=== PATIENT | female | born 1990 | race African-American/Black ===

== ENCOUNTER 2016-12-28 13:51 | Emergency (ER) | payer SELFPAY ==
[~2016-12-28] VITALS: Ht 172.7 cm; Wt 59.1 kg
[~2016-12-28 13:51] MED LIST: AMOXICILLIN500 MG PO; BIRTH CONTROL PILLS; CIPRO500 MG OR; CIPROFLOXACN500 MG PO; DARVOCET-N 100100 MG OR; DEPO; DEPO-PROVER150 MG/M1 IM; DEPO-PROVER150 MG/ML IM; FLONASE NASAL50 MCG; INVEGA SUS1 IM; LORTAB5 PO; MIRACLEMM PO; PRENATA3 OR; PYRIDIUM200 MG OR; PYRIDIUM200 MG PO; ULTRAM50 MG OR; ZOFRAN ODT4 MG OR; ZOFRAN4 MG/TAB PO; [UNRECOGNIZED DRUG - OTHER]
[2016-12-28] MEDS ORDERED: AMOXICILLIN500 MG PO (15:01)
[2016-12-28 15:07] VITALS: BP 107/63
== END 2016-12-28 15:08 | disposition home or self-care (01) | DRG 159 ==
LOC: ED 13:51
DX: K08.89 Other specified disorders of teeth and supporting structures (principal)

== ENCOUNTER 2017-03-29 11:51 | Emergency (ER) | payer SELFPAY ==
[~2017-03-29] VITALS: Ht 172.7 cm; Wt 50.0 kg
[2017-03-29 12:50] VITALS: BP 121/66
== END 2017-03-29 12:50 | disposition home or self-care (01) | DRG 951 ==
LOC: ED 11:51
DX: Z03.89 Encounter for observation for other suspected diseases and conditions ruled out (principal)

== ENCOUNTER 2021-05-18 16:19 | Emergency (ER) | payer MEDICARE, MEDICAID ==
[2021-05-18 17:54] VITALS: BP 108/65
== END 2021-05-18 17:58 | disposition home or self-care (01) ==
LOC: ED 16:19
DX: R19.7 Diarrhea, unspecified (principal); Z20.822 Contact with and (suspected) exposure to COVID-19

== ENCOUNTER 2022-04-28 10:50 | Emergency (ER) | payer MEDICARE, MEDICAID ==
[~2022-04-28] VITALS: Ht 172.7 cm; Wt 87.0 kg
[2022-04-28] MEDS ORDERED: INVEGA1.5 MG PO (12:07)
[2022-04-28] MEDS ORDERED: PAXLOVID PO (13:11)
[2022-04-28] MEDS ORDERED: TAM75CAP PO (13:11)
[2022-04-28 13:13] VITALS: BP 117/70
== END 2022-04-28 13:32 | disposition home or self-care (01) ==
LOC: ED 10:50
DX: U07.1 COVID-19 (principal); J10.1 Influenza due to other identified influenza virus with other respiratory manifestations

== ENCOUNTER 2022-07-18 06:03 | Emergency (ER) | payer MEDICARE, MEDICAID ==
[~2022-07-18] VITALS: Ht 172.7 cm; Wt 85.0 kg
[~2022-07-18 06:03] MED LIST changes: +INVEGA1.5 MG PO; +PAXLOVID PO; +TAM75CAP PO
[2022-07-18 07:28] LABS: HEMATOCRIT 34.9 % (37.0-47.0); HEMOGLOBIN 11.4 g/dl (12.0-16.0); IMMATURE GRANULOCYTES 0.1 % (0.0-5.0); MEAN CELL VOLUME 92.1 fL CALC (80.0-100.0); MEAN CORPUSCULAR HGB 30.1 pG CALC (26.0-32.0); MEAN CORPUSCULAR HGB CONC 32.7 g/dL CAL (32.0-36.0); NEUT# 5.85 thou/uL (2.00-7.15); RED BLOOD COUNT 3.79 mill/uL (4.20-5.60); RED CELL DISTRI WIDTH 12.8 % (11.5-15.5)
[2022-07-18 09:02] LABS: ALBUMIN 4.3 g/dL (3.2-5.0); ALKALINE PHOSPHATASE 77 u/l (38-126); ANION GAP 16 (6-22 (CALC)); BUN 8 mg/dL (7-17); BUN/CREATININE RATIO 8 (12-20 (CALC)); CARBON DIOXIDE 23 mmol/l (22-30); CHLORIDE 105 mmol/l (95-108); GFR FOR AFR.AMER. > 60 ML/MIN (>=60 (CALC)); GFR OTHER RACES > 60 ML/MIN (>=60 (CALC)); POTASSIUM 3.9 mmol/l (3.5-5.1); SGOT/AST 33 u/l (14-36); SODIUM 140 mmol/l (137-146); TOTAL PROTEIN 7.5 g/dL (6.3-8.2)
[2022-07-18 09:04] LABS: BILIRUBIN, TOTAL 0.2 mg/dL (0.0-1.4)
[2022-07-18] MEDS ORDERED: NEXIUM40 M1 PO (09:24)
[2022-07-18] MEDS ORDERED: ZOFRAN4 MG/TAB PO (09:24)
[2022-07-18 10:52] VITALS: BP 120/80
== END 2022-07-18 10:52 | disposition home or self-care (01) ==
LOC: ED 06:03
PROVIDERS: Emergency Medicine
DX: A08.4 Viral intestinal infection, unspecified (principal)

== ENCOUNTER 2022-11-05 20:48 | Emergency (ER) | payer MEDICARE, MEDICAID ==
[~2022-11-05] VITALS: Ht 170.2 cm; Wt 84.0 kg
[~2022-11-05 20:48] MED LIST changes: +NEXIUM40 M1 PO
[2022-11-06] MEDS ORDERED: MOTRIN800 MG PO (00:19)
== END 2022-11-06 00:34 | disposition home or self-care (01) ==
LOC: ED 20:48
DX: J10.1 Influenza due to other identified influenza virus with other respiratory manifestations (principal)

== ENCOUNTER 2023-03-27 22:03 | Emergency (ER) | payer MEDICARE ==
[~2023-03-27] VITALS: Ht 170.2 cm; Wt 79.5 kg
[~2023-03-27 22:03] MED LIST changes: +MOTRIN800 MG PO
[2023-03-27 23:11] VITALS: BP 128/71
== END 2023-03-27 23:18 | disposition home or self-care (01) ==
LOC: ED 22:03
DX: S30.810A Abrasion of lower back and pelvis, initial encounter (principal); X58.XXXA Exposure to other specified factors, initial encounter; Y93.89 Activity, other specified

== ENCOUNTER 2023-06-12 05:09 | Emergency (ER) | payer MEDICARE, MEDICAID ==
[2023-06-12] VITALS (10 sets, daily range): BP systolic 91–105; BP diastolic 51–73
[~2023-06-12] VITALS: Ht 170.2 cm; Wt 99.0 kg
[2023-06-12 05:50] LABS: URINE BLOOD DIPSTICK Moderate (NEGATIVE); URINE GLUCOSE - DIPSTICK Negative (NEGATIVE); URINE KETONE Negative (NEGATIVE); URINE NITRITE - DIPSTICK Negative (Negative); URINE PROTEIN - DIPSTICK 100 mg/dL (NEG-TRACE); URINE SPECIFIC GRAVITY >=1.030
[2023-06-12 05:54] LABS: URINE COLOR Yellow; URINE LEUK ESTERASE Small (NEGATIVE)
[2023-06-12 05:55] LABS: BASO% 0.1 % (0-3); EOS% 0.2 % (0-8); HEMATOCRIT 33.7 % (37.0-47.0); HEMOGLOBIN 10.9 g/dl (12.0-16.0); LYMPH% 7.9 % (15-41); MEAN CELL VOLUME 92.3 fL CALC (80.0-100.0); MEAN CORPUSCULAR HGB 29.9 pG CALC (26.0-32.0); MEAN CORPUSCULAR HGB CONC 32.3 g/dL CAL (32.0-36.0); MONO% 5.8 % (2-13); NEUT# 14.16 thou/uL (2.00-7.15); RED BLOOD COUNT 3.65 mill/uL (4.20-5.60)
[2023-06-12 05:58] LABS: URINE BACTERIA MANY hpf; URINE SQUAMOUS EPITHELIAL CELL FEW EPI/hpf (0-FEW); URINE WBC 20-50 WBC/hpf (0-5)
[2023-06-12 06:20] LABS: ALBUMIN 3.6 g/dL (3.2-5.0); CREATININE 1.3 mg/dL (0.5-1.0); POTASSIUM 3.5 mmol/l (3.5-5.1); TOTAL PROTEIN 7.3 g/dL (6.3-8.2)
[2023-06-12 06:24] LABS: BILIRUBIN, TOTAL 0.8 mg/dL (0.02-1.3)
[2023-06-12] MEDS ORDERED: ONDANSETRON4 MG PO (06:49)
[2023-06-12] MEDS ORDERED: BACTRIM DS1 TAB PO (06:49)
== END 2023-06-12 07:34 | disposition home or self-care (01) ==
LOC: ED 05:09
PROVIDERS: Family Medicine
DX: K52.9 Noninfective gastroenteritis and colitis, unspecified (principal); N39.0 Urinary tract infection, site not specified; B96.89 Other specified bacterial agents as the cause of diseases classified elsewhere; Z20.822 Contact with and (suspected) exposure to COVID-19

== ENCOUNTER 2023-06-14 23:51 | Emergency (ER) | payer MEDICARE, MEDICAID ==
[~2023-06-14] VITALS: Ht 170.2 cm; Wt 83.0 kg
[~2023-06-14 23:51] MED LIST changes: +BACTRIM DS1 TAB PO; +ONDANSETRON4 MG PO
[2023-06-15 00:21] VITALS: BP 113/67
[2023-06-15] MEDS ORDERED: BENZTROPINE1 MG PO (00:50)
[2023-06-15 00:54] LABS: URINE BILIRUBIN - DIPSTICK Negative (NEGATIVE); URINE BLOOD DIPSTICK Trace-lysed (NEGATIVE); URINE KETONE 15 mg/dL (NEGATIVE); URINE NITRITE - DIPSTICK Negative (Negative); URINE PH 6.5 (4.5-8.0); URINE PROTEIN - DIPSTICK Negative (NEG-TRACE); URINE SPECIFIC GRAVITY <=1.005
[2023-06-15 01:02] LABS: URINE COLOR Yellow; URINE LEUK ESTERASE Small (NEGATIVE)
[2023-06-15 01:03] LABS: BASO% 0.3 % (0-3); EOS% 0.2 % (0-8); HEMATOCRIT 31.5 % (37.0-47.0); HEMOGLOBIN 10.2 g/dl (12.0-16.0); IMMATURE GRANULOCYTES 1.2 % (0.0-5.0); LYMPH% 17.9 % (15-41); MEAN CELL VOLUME 90.3 fL CALC (80.0-100.0); MEAN CORPUSCULAR HGB 29.2 pG CALC (26.0-32.0); MEAN CORPUSCULAR HGB CONC 32.4 g/dL CAL (32.0-36.0); MONO% 8.9 % (2-13); NEUT# 7.55 thou/uL (2.00-7.15); NEUT% 71.5 % (42-76); RED BLOOD COUNT 3.49 mill/uL (4.20-5.60); RED CELL DISTRI WIDTH 13.1 % (11.5-15.5)
[2023-06-15 01:07] LABS: URINE GLUCOSE - DIPSTICK Negative (NEGATIVE)
[2023-06-15 01:08] LABS: URINE BACTERIA MODERATE hpf; URINE EPITHELIAL CELLS MANY EPI/hpf (0-FEW)
[2023-06-15 01:23] LABS: ALBUMIN 3.4 g/dL (3.2-5.0); BILIRUBIN, TOTAL 0.6 mg/dL (0.02-1.3); CREATININE 1.4 mg/dL (0.5-1.0); POTASSIUM 3.4 mmol/l (3.5-5.1)
[2023-06-15] MEDS ORDERED: CEPHALEXIN500 MG PO (01:42)
[2023-06-15 02:10] VITALS: BP 110/72
--- NOTE | 2023-06-15 12:27 | NUR ---
Discussed urine culture results from 06/[address] Miguel. Received verbal order to cancel Keflex rx and call in new rx for Bactrim DS 1 tab po bid x 4 additional days.
== END 2023-06-15 02:10 | disposition home or self-care (01) ==
LOC: ED 23:51
PROVIDERS: Emergency Medicine
DX: N39.0 Urinary tract infection, site not specified (principal); F20.9 Schizophrenia, unspecified; Z20.822 Contact with and (suspected) exposure to COVID-19

== ENCOUNTER 2023-06-19 08:25 | Emergency (ER) | payer MEDICARE, MEDICAID ==
[~2023-06-19] VITALS: Ht 170.2 cm; Wt 83.9 kg
[~2023-06-19 08:25] MED LIST changes: +BENZTROPINE1 MG PO; +CEPHALEXIN500 MG PO
[2023-06-19 10:29] LABS: ALKALINE PHOSPHATASE 127 u/l (38-126); ANION GAP 16 (6-22 (CALC)); BILIRUBIN, TOTAL 0.5 mg/dL (0.02-1.3); BUN 7 mg/dL (7-17); BUN/CREATININE RATIO 6 (12-20 (CALC)); CARBON DIOXIDE 24 mmol/l (22-30); CHLORIDE 103 mmol/l (95-108); CREATININE 1.3 mg/dL (0.5-1.0); GFR FOR AFR.AMER. 57 ML/MIN (>=60 (CALC)); GFR OTHER RACES 47 ML/MIN (>=60 (CALC)); POTASSIUM 3.2 mmol/l (3.5-5.1); SODIUM 139 mmol/l (137-146)
[2023-06-19 10:31] LABS: BASO% 0.7 % (0-3); EOS% 2.3 % (0-8); HEMATOCRIT 37.1 % (37.0-47.0); LYMPH% 44.4 % (15-41); MEAN CELL VOLUME 91.6 fL CALC (80.0-100.0); MEAN CORPUSCULAR HGB 29.6 pG CALC (26.0-32.0); MEAN CORPUSCULAR HGB CONC 32.3 g/dL CAL (32.0-36.0); MONO% 7.7 % (2-13); NEUT# 2.64 thou/uL (2.00-7.15); NEUT% 43.9 % (42-76); RED BLOOD COUNT 4.05 mill/uL (4.20-5.60); RED CELL DISTRI WIDTH 13.3 % (11.5-15.5)
[2023-06-19 10:37] LABS: D-DIMER 1.69 mg/L (0.19-0.60)
[2023-06-19 10:41] LABS: ACT PARTIAL THROMBO TIME 29.5 SECONDS (20.0-32.5); INTERNATIONAL NORMALIZED RATIO 1.1 RATIO (0.7-1.3); PROTHROMBIN TIME 10.2 SECONDS (9.0-12.5)
[2023-06-19 10:46] LABS: ALBUMIN 4.2 g/dL (3.2-5.0); SGOT/AST 61 u/l (14-36); TOTAL PROTEIN 8.7 g/dL (6.3-8.2)
[2023-06-19] MEDS ORDERED: IBUPROFEN600 MG PO (15:05)
[2023-06-19 15:27] VITALS: BP 114/72
== END 2023-06-19 15:24 | disposition home or self-care (01) ==
LOC: ED 08:25
PROVIDERS: Family Medicine
DX: M94.0 Chondrocostal junction syndrome [Tietze] (principal)
CPT/HCPCS: Q9967

== ENCOUNTER 2023-10-20 08:23 | Emergency (ER) | payer MEDICARE, MEDICAID ==
[~2023-10-20] VITALS: Ht 170.2 cm; Wt 79.3 kg
[~2023-10-20 08:23] MED LIST changes: +IBUPROFEN600 MG PO
[2023-10-20 08:45] VITALS: BP 102/78
[2023-10-20 09:00] VITALS: BP 100/62
[2023-10-20 09:15] VITALS: BP 108/63
[2023-10-20] MEDS ORDERED: ALL DAY10 MG PO (09:16)
[2023-10-20] MEDS ORDERED: PREDNISONE50 MG PO (09:16)
[2023-10-20 09:31] VITALS: BP 92/65
== END 2023-10-20 09:39 | disposition home or self-care (01) ==
LOC: ED 08:23
DX: L50.0 Allergic urticaria (principal)

== ENCOUNTER 2024-05-11 12:19 | Emergency (ER) | payer MEDICARE ==
[~2024-05-11] VITALS: Ht 170.2 cm; Wt 83.9 kg
[~2024-05-11 12:19] MED LIST changes: +ALL DAY10 MG PO; +PREDNISONE50 MG PO
[2024-05-11 12:43] VITALS: BP 112/69
== END 2024-05-11 12:50 | disposition left against medical advice (07) ==
LOC: ED 12:19
DX: F20.9 Schizophrenia, unspecified (principal); Z53.29 Procedure and treatment not carried out because of patient's decision for other reasons

== ENCOUNTER 2024-09-10 01:22 | Emergency (ER) | payer MEDICARE ==
[~2024-09-10] VITALS: Ht 170.2 cm; Wt 69.4 kg
[2024-09-10 01:56] LABS: URINE BILIRUBIN - DIPSTICK Negative (NEGATIVE); URINE BLOOD DIPSTICK Large (NEGATIVE); URINE GLUCOSE - DIPSTICK Negative (NEGATIVE); URINE KETONE Negative (NEGATIVE); URINE PROTEIN - DIPSTICK 30 mg/dL (NEG-TRACE); URINE UROBILINOGEN - DIPSTICK 0.2 E.U./dL (0.2)
[2024-09-10 01:59] LABS: URINE COLOR Yellow; URINE LEUK ESTERASE Small (NEGATIVE)
[2024-09-10 02:03] LABS: URINE NITRITE - DIPSTICK Negative (Negative); URINE RBC >100 RBC/hpf (0-5)
[2024-09-10 02:06] LABS: URINE EPITHELIAL CELLS MODERATE EPI/hpf (0-FEW)
[2024-09-10 02:07] LABS: URINE BACTERIA FEW hpf
[2024-09-10 03:05] VITALS: BP 115/71
== END 2024-09-10 03:05 | disposition home or self-care (01) ==
LOC: ED 01:22
PROVIDERS: Emergency Medicine
DX: N89.8 Other specified noninflammatory disorders of vagina (principal); F20.9 Schizophrenia, unspecified; Z59.00 Homelessness unspecified

== ENCOUNTER 2024-09-26 00:39 | Emergency (ER) | payer MEDICARE ==
[~2024-09-26] VITALS: Ht 170.2 cm; Wt 69.0 kg
[2024-09-26 01:00] VITALS: BP 132/71
== END 2024-09-26 01:41 | disposition left against medical advice (07) ==
LOC: ED 00:39
DX: R30.0 Dysuria (principal); F20.9 Schizophrenia, unspecified; Z53.29 Procedure and treatment not carried out because of patient's decision for other reasons

== ENCOUNTER 2024-10-05 21:25 | Emergency (ER) | payer MEDICARE ==
[~2024-10-05] VITALS: Ht 170.2 cm; Wt 69.0 kg
[2024-10-05] MEDS ORDERED: INVEGA SUS234 MG/1.5 IM (22:21)
[2024-10-05] MEDS ORDERED: ORTHO TRI-CY PO (22:23)
[2024-10-05 22:40] VITALS: BP 100/70
== END 2024-10-05 22:40 | disposition home or self-care (01) ==
LOC: ED 21:25
DX: Z30.011 Encounter for initial prescription of contraceptive pills (principal); F20.9 Schizophrenia, unspecified

== ENCOUNTER 2024-10-08 19:15 | Emergency (ER) | payer MEDICARE ==
[~2024-10-08] VITALS: Ht 170.2 cm; Wt 72.0 kg
[~2024-10-08 19:15] MED LIST changes: +INVEGA SUS234 MG/1.5 IM; +ORTHO TRI-CY PO
[2024-10-08 20:30] VITALS: BP 110/68
[2024-10-08 20:34] LABS: CREATININE 1.1 mg/dL (0.5-1.0); POTASSIUM 4.4 mmol/l (3.5-5.1)
[2024-10-08 20:45] VITALS: BP 100/69
[2024-10-08 21:01] VITALS: BP 100/69
== END 2024-10-08 21:03 | disposition home or self-care (01) ==
LOC: ED 19:15
PROVIDERS: Family Medicine
DX: Z11.4 Encounter for screening for human immunodeficiency virus [HIV] (principal)

== ENCOUNTER 2024-11-20 19:34 | Emergency (ER) | payer MEDICARE ==
[~2024-11-20] VITALS: Ht 170.2 cm; Wt 68.4 kg
[2024-11-20 22:43] VITALS: BP 99/58
[2024-11-20 23:00] VITALS: BP 82/62
[2024-11-20] MEDS ORDERED: FLUCONAZOLE 150 MG/TAB PO ONE (23:00)
[2024-11-20 23:31] VITALS: BP 105/68
[2024-11-20] MEDS ORDERED: metroNIDAZOLE 500 MG/TAB PO SCH (23:39)
[2024-11-21 00:25] VITALS: BP 105/68
== END 2024-11-21 00:25 | disposition home or self-care (01) ==
LOC: ED 19:34
DX: A59.01 Trichomonal vulvovaginitis (principal); Z59.02 Unsheltered homelessness

== ENCOUNTER 2024-11-26 17:33 | Emergency (ER) | payer MEDICARE ==
[~2024-11-26] VITALS: Ht 170.2 cm; Wt 77.0 kg
[2024-11-26 18:00] VITALS: BP 117/59
[2024-11-26 18:15] VITALS: BP 112/74
[2024-11-26 18:30] VITALS: BP 111/64
[2024-11-26 18:45] VITALS: BP 117/76
[2024-11-26] MEDS ORDERED: ZPAK PO (18:55)
[2024-11-26 19:00] VITALS: BP 122/72
[2024-11-26 19:08] VITALS: BP 122/72
== END 2024-11-26 19:10 | disposition home or self-care (01) ==
LOC: ED 17:33
DX: J06.9 Acute upper respiratory infection, unspecified (principal); Z20.822 Contact with and (suspected) exposure to COVID-19

== ENCOUNTER 2024-12-18 07:19 | Emergency (ER) | payer MEDICARE ==
[~2024-12-18] VITALS: Ht 170.2 cm; Wt 68.0 kg
[~2024-12-18 07:19] MED LIST changes: +ZPAK PO
[2024-12-18 07:28] VITALS: BP 101/64
[2024-12-18 07:30] VITALS: BP 101/65
[2024-12-18 07:45] VITALS: BP 100/65
[2024-12-18 08:00] VITALS: BP 110/70
== END 2024-12-18 08:10 | disposition home or self-care (01) ==
LOC: ED 07:19
DX: R23.4 Changes in skin texture (principal); F20.9 Schizophrenia, unspecified